=== PATIENT | female | born 1950 | race Caucasian/White ===

== ENCOUNTER → 2018-04-01 | Day surgery (SDC) | payer MEDICARE ==
[2018-03-23 13:20] LABS: BASOPHILS % 0.3 % (0.0-1.0); EOSINOPHILS % 0.6 % (0.0-6.0); HEMATOCRIT 38.1 % (34.2-44.1); HEMOGLOBIN 13.1 g/dL (12.0-16.0); LYMPHOCYTES % 30.6 % (18.0-39.1); MEAN CORPUSCULAR HEMOGLOBIN 30.4 pg (28-32); MEAN CORPUSCULAR HGB CONC 34.4 g/dL (31-35); MEAN CORPUSCULAR VOLUME 88.4 fL (81-99); MONOCYTES # (AUTO) 0.4 (0.2-0.8); MONOCYTES % 6.6 % (4.4-11.3); NEUTROPHILS # (AUTO) 4.1 (2.1-6.9); NEUTROPHILS % 61.6 % (38.7-80.0); PLATELET COUNT 176 x10e3/uL (140-360); RED BLOOD COUNT 4.31 x10e6/uL (3.6-5.1); RED CELL DISTRIBUTION WIDTH 13.1 % (11.7-14.4)
[~2018-04-01] MED LIST: BENEFIBER PO; CALCIUM CITRAT1 EAC3 PO; CALCIUM CITRATE PO; FENTANYL CITRATE/PF 100MCG/2 ML INJ ONE; FISH OIL 1,2001 EAC1; FOSAMAX70 MG PO; GLUCOSAMINE &1 EAC1 PO; MIDAZOLAM HCL 2 MG/2 ML VIAL ONE; OMEGA-31000 MG PO; ONE DAILY MULT1 EAC1 PO; PROPOFOL IV EMULSION 10 MG/ML 50 ML VIAL ONE; RESTASIS1 EACH OU; TURMERIC CURCUMIN PO; VITAMIN D32000 UNI1 PO; ZINC PO; [UNRECOGNIZED DRUG - OTHER] PO; [UNRECOGNIZED DRUG - OTHER] PO; biotin PO
--- OUTSIDE RECORDS SUMMARY | 2018-04-01 06:01 | XMS REPORT | Continuity of Care Document ---
Author Author [facility] Organization [facility] Address Unknown Phone Unavailable Care Team Providers Care Certified Prosthetist/Orthotist Name Role Phone MD Cortez Miranda PP Unavailable Insurance Providers Payer name Policy type / Coverage type Policy ID Covered libertarian ID Policy [place] [facility] (PPO) Encounters Encounter Performer Location Date Lab Report Angelica Cortez MD [facility] Feb 21, 2014 Allergies, Adverse Reactions, Alerts Type Substance Reaction Status Drug allergy BACTRIM Rash Active Drug allergy CODEINE Rash Active Environmental allergy LATEX rash Active Problems Problem Effective Dates Problem Status HYPERCHOLESTEROLEMIA Dec 20, 2013 Active OSTEOPENIA Dec 20, 2013 Active PHYSICAL EXAM Feb 21, 2014 Active ABNORMAL ELECTROCARDIOGRAM Feb 21, 2014 Active SCREENING FOR CARDIOVASCULAR CONDITION NEC Feb 21, 2014 Active SCREENING FOR DIABETES MELLITUS Feb 21, 2014 Active Procedures Date Description Comments Dec 20, 2013 smoking status Never smoker Sep 14, 2012 mammogram Normal Bilateral Jun 16, 2010 vaginal Pap smear results Normal Sep 02, 2011 colonoscopy Normal Medications Medication Instructions Start Date Status BONIVA 150 MG TABS 1 by mouth monthly Dec 20, 2013 Active ONE-A-DAY WOMENS 50+ ADVANTAGE TABS 1 by mouth daily Dec 20, 2013 Active CALCIUM-VITAMIN D 600-400 MG-UNIT TABS 1 by mouth daily Dec 20, 2013 Active OMEGA 3 CPDR 1 by mouth daily Dec 20, 2013 Active ASPIRIN LOW DOSE 81 MG TABS 1 by mouth daily Dec 20, 2013 Active BIOTIN 10 MG TABS 1 by mouth daily Dec 20, 2013 Active RESTASIS 0.05 % EMUL 1 drop in each eye in morning and night Dec 20, 2013 Active FLUOCINOLONE ACETONIDE OIL 5 drops in each ear twice a day Dec 20, 2013 Active Immunizations Vaccine Date Status pneumococcal immunization administered Feb 21, 2014 completed Vital Signs Date Description Test Result Dec 20, 2013 weight E&M - 3141-9 WEIGHT 112 lb Dec 20, 2013 height E&M - 8302-2 HEIGHT 64 in Dec 20, 2013 temperature E&M TEMPERATURE 112 deg f Dec 20, 2013 pulse rate E&M - 8867-4 PULSE RATE 79 /min Dec 20, 2013 blood pressure, systolic - 8480-6 BP SYSTOLIC 113 mm Hg Dec 20, 2013 blood pressure, diastolic - 8462-4 BP DIASTOLIC 49 mm Hg Feb 21, 2014 weight E&M - 3141-9 WEIGHT 113 lb Feb 21, 2014 temperature E&M TEMPERATURE 96.7 deg f Feb 21, 2014 pulse rate E&M - 8867-4 PULSE RATE 82 /min Feb 21, 2014 blood pressure, systolic - 8480-6 BP SYSTOLIC 92 mm Hg Feb 21, 2014 blood pressure, diastolic - 8462-4 BP DIASTOLIC 60 mm Hg Feb 21, 2014 height E&M - 8302-2 HEIGHT 64 in Results Date Description Test Name Value Reference Interpretation Status Feb 21, 2014 cholesterol, serum CHOLESTEROL 221 mg/dl <=199 High Feb 21, 2014 triglyceride, serum, fasting TRIGLYCERIDE 107 mg/dl <=149 Feb 21, 2014 HDL cholesterol, serum HDL 78 mg/dl >=61 Feb 21, 2014 cholesterol, serum CHOLESTEROL 221 mg/dl <=199 High Feb 21, 2014 triglyceride, serum, fasting TRIGLYCERIDE 107 mg/dl <=149 Feb 21, 2014 HDL cholesterol, serum HDL 78 mg/dl >=61 Feb 21, 2014 LDL cholesterol, serum LDL 122 mg/dl <=99 High Feb 21, 2014 cholesterol, serum CHOLESTEROL 221 mg/dl <=199 High Feb 21, 2014 triglyceride, serum, fasting TRIGLYCERIDE 107 mg/dl <=149 Feb 21, 2014 HDL cholesterol, serum HDL 78 mg/dl >=61 Feb 21, 2014 LDL cholesterol, serum LDL 122 mg/dl <=99 High Jun 16, 2010 vaginal Pap smear results PAP SMEAR Normal null
--- OUTSIDE RECORDS SUMMARY | 2018-04-01 06:01 | XMS REPORT | Continuity of Care Document ---
Author Author [facility] Interface Address Unknown Phone Unavailable Problems Problem Status Onset Date Classification Date Reported Comments Source PARONYCHIA, FINGER Active 11/18/2014 Condition 12/07/2014 [facility] INSECT BITE NEC W/O INFECTION Active 10/28/2014 Condition 12/07/2014 [facility] CORNS AND CALLUSES Active 10/28/2014 Condition 12/07/2014 [facility] OTHER SCREENING MAMMOGRAM Active 03/03/2014 Condition 12/07/2014 [facility] SCREENING FOR COLON CANCER Inactive 02/28/2014 Condition 12/07/2014 [facility] PHYSICAL EXAM Active 02/21/2014 Condition 12/07/2014 [facility] ABNORMAL ELECTROCARDIOGRAM Active 02/21/2014 Condition 12/07/2014 [facility] SCREENING FOR CARDIOVASCULAR CONDITION NEC Active 02/21/2014 Condition 12/07/2014 [facility] SCREENING FOR DIABETES MELLITUS Active 02/21/2014 Condition 12/07/2014 [facility] HYPERCHOLESTEROLEMIA Active 12/20/2013 Condition 12/07/2014 [facility] OSTEOPENIA Active 12/20/2013 Condition 12/07/2014 [facility] Medications Medication Details Route Status Patient Instructions Ordering Provider Order Date Source KEFLEX 500 MG CAPS 1 capsule three times a day x 7 days No Longer Active 11/18/2014 [facility] BONIVA 150 MG TABS 1 by mouth monthly Active 12/20/2013 [facility] ONE-A-DAY WOMENS 50+ ADVANTAGE TABS 1 by mouth daily Active 12/20/2013 [facility] CALCIUM-VITAMIN D 600-400 MG-UNIT TABS 1 by mouth daily Active 12/20/2013 Medical [facility] OMEGA 3 CPDR 1 by mouth daily Active 12/20/2013 Medical [facility] BIOTIN 10 MG TABS 1 by mouth daily Active 12/20/2013 Medical [facility] RESTASIS 0.05 % EMUL 1 drop in each eye in morning and night Active 12/20/2013 [facility] ASPIRIN LOW DOSE 81 MG TABS 1 by mouth daily No Longer Active 12/20/2013 [facility] FLUOCINOLONE ACETONIDE OIL 5 drops in each ear twice a day No Longer Active 12/20/2013 [facility] RESTASIS 0.05 % EMUL 1 drop in each eye in morning and night Active 12/20/2013 [facility] RESTASIS 0.05 % EMUL 1 drop in each eye in morning and night Active 12/20/2013 Medical [facility] Allergies, Adverse Reactions, Alerts Substance Category Reaction Severity Reaction type Status Date Reported Comments Source BACTRIM Drug allergy BACTRIM 12/20/2013 [facility] CODEINE Drug allergy CODEINE 12/20/2013 Medical [facility] LATEX Environmental allergy LATEX 12/20/2013 Medical [facility] Immunizations Immunization Date Given Site Status Last Updated Comments Source pneumococcal immunization administered 02/21/2014 completed Medical [facility] Results Order Name Results Value Reference Range Date Interpretation Comments Source Chemistry CHOLESTEROL 221 mg/dl - 199 02/21/2014 [facility] Chemistry TRIGLYCERIDE 107 mg/dl - 149 02/21/2014 [facility] Chemistry HDL 78 mg/dl >=61 02/21/2014 [facility] Chemistry CHOLESTEROL 221 mg/dl - 199 02/21/2014 [facility] Chemistry TRIGLYCERIDE 107 mg/dl - 149 02/21/2014 [facility] Chemistry HDL 78 mg/dl >=61 02/21/2014 [facility] Chemistry LDL 122 mg/dl - 99 02/21/2014 [facility] Chemistry CHOLESTEROL 221 mg/dl - 199 02/21/2014 [facility] Chemistry TRIGLYCERIDE 107 mg/dl - 149 02/21/2014 [facility] Chemistry HDL 78 mg/dl >=61 02/21/2014 [facility] Chemistry LDL 122 mg/dl - 99 02/21/2014 Medical [facility] Operations And Intelligence Assistant PAP SMEAR Normal 06/16/2010 Medical [facility] Pathology PAP SMEAR Normal 06/16/2010 Medical [facility] Vital Signs Vital Sign Value Date Comments Source Height 64 12/07/2014 [facility] Weight 112 12/07/2014 Medical [facility] Temperature Oral (F) 97.9 F 12/07/2014 [facility] Heart Rate 75 12/07/2014 [facility] Systolic (mm Hg) 96 12/07/2014 [facility] Diastolic (mm Hg) 61 12/07/2014 Medical [facility] Systolic (mm Hg) 105 11/18/2014 [facility] Diastolic (mm Hg) 60 11/18/2014 Medical [facility] Height 64 11/18/2014 [facility] Weight 111 11/18/2014 [facility] Temperature Oral (F) 98.0 F 11/18/2014 [facility] Heart Rate 70 11/18/2014 [facility] Weight 113 10/28/2014 [facility] Temperature Oral (F) 98.1 F 10/28/2014 [facility] Heart Rate 68 10/28/2014 [facility] Systolic (mm Hg) 107 10/28/2014 [facility] Diastolic (mm Hg) 70 10/28/2014 [facility] Weight 113 02/21/2014 [facility] Temperature Oral (F) 96.7 F 02/21/2014 [facility] Heart Rate 82 02/21/2014 [facility] Systolic (mm Hg) 92 02/21/2014 [facility] Diastolic (mm Hg) 60 02/21/2014 [facility] Height 64 02/21/2014 [facility] Weight 112 12/20/2013 [facility] Height 64 12/20/2013 [facility] Temperature Oral (F) 112 F 12/20/2013 [facility] Heart Rate 79 12/20/2013 [facility] Systolic (mm Hg) 113 12/20/2013 [facility] Diastolic (mm Hg) 49 12/20/2013 [facility] Encounters Location Location Details Encounter Type Encounter Number Reason For Visit Attending Provider ADM Date DC Date Status Source [facility] Office Visit [id number] Angelica Cortez MD 02/21/2014 02/21/2014 Medical [facility] Lab Report [id number] nAgelica Cortez MD 02/21/2014 02/21/2014 Medical [facility] Lab Report [id number] Angelica Cortez MD 04/17/2014 04/17/2014 Medical [facility] Office Visit [id number] Angelica Cortez MD 10/28/2014 10/28/2014 [facility] Office Visit [id number] Angelica Cortez MD 11/18/2014 11/18/2014 Medical [facility] Office Visit [id number] Angelica Cortez MD 12/07/2014 12/07/2014 Medical [facility] Procedures Procedure Code Date Perfomer Comments Source mammogram 00790 02/14/2014 Normal [facility] mammogram 16065 09/14/2012 Normal [facility] colonoscopy 59424 09/02/2011 Normal [facility] vaginal Pap smear results 18367 06/16/2010 Normal [facility]
--- OUTSIDE RECORDS SUMMARY | 2018-04-01 06:01 | XMS REPORT | Continuity of Care Document ---
Author Author [facility] Organization [facility] Address Unknown Phone Unavailable Care Team Providers Care Emergency Detail Driver Name Role Phone MD Diego, Angelica RAMIREZ Unavailable Insurance Providers Payer name Policy type / Coverage type Policy ID Covered republican ID Policy [place] [employer] [facility] (PPO) Encounters Encounter Performer Location Date Office Visit Angelica Cortez MD [facility] Feb 21, 2014 Allergies, Adverse Reactions, Alerts [...] Test Result Dec 20, 2013 weight E&M WEIGHT 112 lb Dec 20, 2013 height E&M HEIGHT 64 in Dec 20, 2013 temperature E&M TEMPERATURE 112 deg f Dec 20, 2013 pulse rate E&M PULSE RATE 79 /min Dec 20, 2013 blood pressure, systolic BP SYSTOLIC 113 mm Hg Dec 20, 2013 blood pressure, diastolic BP DIASTOLIC 49 mm Hg Feb 21, 2014 weight E&M WEIGHT 113 lb Feb 21, 2014 temperature E&M TEMPERATURE 96.7 deg f Feb 21, 2014 pulse rate E&M PULSE RATE 82 /min Feb 21, 2014 blood pressure, systolic BP SYSTOLIC 92 mm Hg Feb 21, 2014 blood pressure, diastolic BP DIASTOLIC 60 mm Hg Feb 21, 2014 height E&M HEIGHT 64 in Results Date Description Test [...]
--- OUTSIDE RECORDS SUMMARY | 2018-04-01 06:02 | XMS REPORT | Continuity of Care Document ---
Author Author [facility] Organization [facility] Address Unknown Phone Unavailable Care Team Providers Care Department Coordinator Name Role Phone MD Cortez Miranda Unavailable Insurance Providers Payer name Policy type / Coverage type Policy ID Covered alliance party ID Policy [place] [employer] [facility] (PPO) Encounters Encounter Performer Location Date Office Visit Angelica Cortez MD [facility] October 28, 2014 Allergies, Adverse Reactions, Alerts Type Substance [...] FOR DIABETES MELLITUS Feb 21, 2014 Active SCREENING FOR COLON CANCER Feb 28, 2014 Inactive OTHER SCREENING MAMMOGRAM Mar 03, 2014 Active INSECT BITE NEC W/O INFECTION October 28, 2014 Active CORNS AND CALLUSES October 28, 2014 Active Procedures Date Description Comments Dec 20, 2013 smoking status Never smoker Sep 14, 2012 mammogram Normal Bilateral Jun 16, 2010 vaginal Pap smear results Normal Sep 02, 2011 colonoscopy Normal October 28, 2014 smoking status Never smoker Medications Medication Instructions Start Date Status BONIVA [...] morning and night Dec 20, 2013 Active ASPIRIN LOW DOSE 81 MG TABS 1 by mouth daily Dec 20, 2013 Inactive FLUOCINOLONE ACETONIDE OIL 5 drops in each ear twice a day Dec 20, 2013 Inactive Immunizations Vaccine Date Status pneumococcal immunization administered Feb 21, 2014 completed Vital Signs Date Description Test Result Dec 20, 2013 weight E&Lacey - 3141-9 WEIGHT 112 lb Dec 20, [...] height E&M - 8302-2 HEIGHT 64 in October 28, 2014 weight E&M - 3141-9 WEIGHT 113 lb October 28, 2014 temperature E&M TEMPERATURE 98.1 deg f October 28, 2014 pulse rate E&M - 8867-4 PULSE RATE 68 /min October 28, 2014 blood pressure, systolic - 8480-6 BP SYSTOLIC 107 mm Hg October 28, 2014 blood pressure, diastolic - 8462-4 BP DIASTOLIC 70 mm Hg Results Date Description Test Name Value Reference [...]
--- OUTSIDE RECORDS SUMMARY | 2018-04-01 06:02 | XMS REPORT | Continuity of Care Document ---
Author Author [facility] Organization [facility] Address Unknown Phone Unavailable Care Team Providers Care Pallet Repairer Name Role Phone MD Cortez Miranda PP Unavailable Insurance Providers Payer name Policy type / Coverage type Policy ID Covered republican ID Policy [place] [employer] [facility] (PPO) Encounters Encounter Performer Location Date Lab Report Angelica Cortez MD [facility] Apr 17, 2014 Allergies, Adverse Reactions, Alerts Type Substance [...] OTHER SCREENING MAMMOGRAM Mar 03, 2014 Active Procedures Date Description Comments Dec [...]
--- OUTSIDE RECORDS SUMMARY | 2018-04-01 06:02 | XMS REPORT | Continuity of Care Document ---
Author Author [facility] Organization [facility] Address Unknown Phone Unavailable Care Team Providers Care Tester Compressed Gases Name Role Phone MD Cortez Miranda Unavailable Insurance Providers Payer name Policy type / Coverage type Policy ID Covered green party ID Policy [place] [employer] [facility] (PPO) Encounters Encounter Performer Location Date Office Visit Angelica Cortez MD [facility] Dec 07, 2014 Allergies, Adverse Reactions, Alerts Type Substance [...] CORNS AND CALLUSES October 28, 2014 Active PARONYCHIA, FINGER Nov 18, 2014 Active Procedures Date Description Comments Dec 20, 2013 smoking status Never smoker Sep 14, 2012 mammogram Normal Bilateral Jun 16, 2010 vaginal Pap smear results Normal Sep 02, 2011 colonoscopy Normal October 28, 2014 smoking status Never smoker Feb 14, 2014 mammogram Normal Bilateral Nov 18, 2014 smoking status Never smoker Dec 07, 2014 smoking status Never smoker Medications Medication [...] twice a day Dec 20, 2013 Inactive KEFLEX 500 MG CAPS 1 capsule three times a day x 7 days Nov 18, 2014 Inactive Immunizations Vaccine Date Status pneumococcal immunization administered Feb 21, 2014 completed Vital Signs Date Description Test Result Dec 20, 2013 weight Jaky&Lacey - 3141-9 WEIGHT 112 lb Dec 20, [...] HEIGHT 64 in October 28, 2014 weight Jaky&Lacey - 3141-9 WEIGHT 113 lb October 28, 2014 temperature E&M TEMPERATURE 98.1 deg f October 28, 2014 pulse rate E&M - 8867-4 PULSE RATE 68 /min October 28, 2014 blood pressure, systolic - 8480-6 BP SYSTOLIC 107 mm Hg October 28, 2014 blood pressure, diastolic - 8462-4 BP DIASTOLIC 70 mm Hg Nov 18, 2014 blood pressure, systolic - 8480-6 BP SYSTOLIC 105 mm Hg Nov 18, 2014 blood pressure, diastolic - 8462-4 BP DIASTOLIC 60 mm Hg Nov 18, 2014 height E&M - 8302-2 HEIGHT 64 in Nov 18, 2014 weight E&M - 3141-9 WEIGHT 111 lb Nov 18, 2014 temperature E&M TEMPERATURE 98.0 deg f Nov 18, 2014 pulse rate E&M - 8867-4 PULSE RATE 70 /min Dec 07, 2014 height E&M - 8302-2 HEIGHT 64 in Dec 07, 2014 weight E&M - 3141-9 WEIGHT 112 lb Dec 07, 2014 temperature E&M TEMPERATURE 97.9 deg f Dec 07, 2014 pulse rate E&M - 8867-4 PULSE RATE 75 /min Dec 07, 2014 blood pressure, systolic - 8480-6 BP SYSTOLIC 96 mm Hg Dec 07, 2014 blood pressure, diastolic - 8462-4 BP DIASTOLIC 61 mm Hg Results Date Description Test Name [...]
--- OUTSIDE RECORDS SUMMARY | 2018-04-01 06:02 | XMS REPORT | Continuity of Care Document ---
Author Author [facility] Organization [facility] Address Unknown Phone Unavailable Care Team Providers Care Padded Products Finisher Name Role Phone MD Diego, Angelica Unavailable Insurance Providers Payer name Policy type / Coverage type Policy ID Covered alliance party ID Policy [place] [employer] [facility] (PPO) Encounters Encounter Performer Location Date Office Visit Angelica Cortez MD [facility] Nov 18, 2014 Allergies, Adverse Reactions, Alerts Type Substance [...] Nov 18, 2014 smoking status Never smoker Medications Medication [...] day x 7 days Nov 18, 2014 Active Immunizations Vaccine Date Status pneumococcal immunization administered Feb 21, 2014 completed Vital Signs Date Description Test Result Dec 20, 2013 weight Ledy - 3141-9 WEIGHT 112 lb Dec 20, [...] 49 mm Hg Feb 21, 2014 weight E&Lacey - 3141-9 WEIGHT 113 lb Feb 21, [...] HEIGHT 64 in October 28, 2014 weight Ledy - 3141-9 WEIGHT 113 lb October 28, [...] E&M - 8867-4 PULSE RATE 70 /min Results Date Description Test Name Value Reference [...]
--- NOTE | 2018-04-01 09:10 | Operative Report ---
DATE OF PROCEDURE: April 01, 2018 REFERRING PHYSICIAN: Dr. Jann Sparrow PROCEDURE PERFORMED: Colonoscopy with biopsies. INDICATIONS FOR COLONOSCOPY: Chronic diarrhea. MEDICATION: Patient was done under MAC. Please see anesthesiologist's note. PROCEDURE: With the patient in the left lateral decubitus position, the flexible fiberoptic Olympus colonoscope was inserted into the rectum with ease and advanced all the way to the cecum. Mucosa overlying the cecum appeared to be within normal limits. The ileocecal valve was intubated and the scope was advanced into the terminal ileum. Biopsies were obtained. The scope was then withdrawn back into the colon. It was then withdrawn slowly. Mucosa overlying the ascending and transverse grossly appeared to be within normal limits. Mucosa overlying the left colon revealed some patchy mild inflammatory changes and random biopsies were obtained. Similar findings were noted in the rectum. The scope was then retroflexed into the distal rectum. The area around the dentate line appeared to be within normal limits. The scope was then straightened out. The rectosigmoid area, as well as the distal rectal area were decompressed. The scope was subsequently withdrawn after securing an adequate stool specimen that was sent for the appropriate stool studies. Patient tolerated the procedure well. IMPRESSION 1. Mild patchy left-sided colitis. 2. Proctitis, mild. PLAN: Follow up histology. Follow up stool studies. Initiate Bentyl 10 mg 1 p.o. t.i.d. and VSL #3 one p.o. daily. Job#: [id number] RI cc: JANN SPARROW MD
[2018-04-01 09:15] VITALS: BP 103/74
[2018-04-01 14:45] LABS: WBC,FECAL (FECAL LACTOFERRIN) NEGATIVE (NEGATIVE)
[2018-04-02 14:54] LABS: C DIFFICILE TOXIN A&B AMP PROB NEGATIVE (NEGATIVE)
== END | disposition home or self-care (01) ==
LOC: ENDO 05:58
PROVIDERS: ATTEND Internal Medicine Gastroenterology
DX: K51.50 Left sided colitis without complications (principal); K62.89 Other specified diseases of anus and rectum; Z01.810 Encounter for preprocedural cardiovascular examination; Z01.812 Encounter for preprocedural laboratory examination; Z88.2 Allergy status to sulfonamides; Z88.6 Allergy status to analgesic agent; Z88.1 Allergy status to other antibiotic agents; Z91.040 Latex allergy status
CPT/HCPCS: 36415; 45380; 83630; 83993; 85025; 87045; 87177; 87328; 87493; 93005; J2250; 45378

== ENCOUNTER → 2022-10-24 | Day surgery (SDC) | payer MEDICARE ==
[2022-10-18 12:22] LABS: BASOPHILS % 0.3 % (0.0-1.0); EOSINOPHILS # (AUTO) 0.1 (0.0-0.4); EOSINOPHILS % 0.9 % (0.0-6.0); HEMATOCRIT 40.2 % (34.2-44.1); HEMOGLOBIN 13.6 g/dL (12.0-16.0); LYMPHOCYTES % 30.8 % (18.0-39.1); MEAN CORPUSCULAR HEMOGLOBIN 30.4 pg (28-32); MEAN CORPUSCULAR HGB CONC 33.8 g/dL (31-35); MEAN CORPUSCULAR VOLUME 89.9 fL (81-99); MONOCYTES # (AUTO) 0.5 (0.2-0.8); MONOCYTES % 6.9 % (4.4-11.3); NEUTROPHILS % 60.8 % (38.7-80.0); PLATELET COUNT 187 x10e3/uL (140-360); RED BLOOD COUNT 4.47 x10e6/uL (3.6-5.1); RED CELL DISTRIBUTION WIDTH 13.2 % (11.7-14.4)
[~2022-10-24] MED LIST changes: +HYOSCYAMINE SULFATE 0.5 MG/ML INJ ONE; +LACTATED RINGER'S 1,000 ML ONE; +LIDOCAINE HCL 2% LOCAL INJ 5 ML SDV VIAL INJ ONE; +MACULAR HEALTH1 EACH; +METOCLOPRAMIDE HCL 10 MG/2ML VIAL ONE; -MIDAZOLAM HCL 2 MG/2 ML VIAL ONE; +PHENYLEPHRINE HCL 1% 10 MG/ML VIAL ONE; +PROPOFOL IV EMULSION 10 MG/ML 20 ML VIAL ONE; -PROPOFOL IV EMULSION 10 MG/ML 50 ML VIAL ONE; +QULIPTA60 MG PO; +ULTRAM 50MG50 MG PO
[2022-10-24 08:28] VITALS: TEMP 97.2
[2022-10-24 08:55] VITALS: BP 111/65; PULSE 75; RESP 16; O2SAT 98
== END | disposition home or self-care (01) ==
LOC: OR 08:19
PROVIDERS: ATTEND Internal Medicine Gastroenterology
DX: K52.831 Collagenous colitis (principal); D12.0 Benign neoplasm of cecum; K57.30 Diverticulosis of large intestine without perforation or abscess without bleeding; M81.0 Age-related osteoporosis without current pathological fracture; Z01.810 Encounter for preprocedural cardiovascular examination; Z01.812 Encounter for preprocedural laboratory examination; Z79.899 Other long term (current) drug therapy
CPT/HCPCS: 36415; 45380; 85025; 93005; J1980; J2001; J2370; J2704; J2765; J3010; J7121; 45378